=== PATIENT | male | born 1980 | race American Indian/Alaskan Native ===

== ENCOUNTER 2021-10-15 22:50 | Emergency (ER) | payer SELFPAY ==
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
[2021-10-16 05:22] VITALS: BP 132/68
== END 2021-10-16 08:12 | disposition home or self-care (01) ==
LOC: ED 22:50
DX: S20.212A Contusion of left front wall of thorax, initial encounter (principal); Y08.89XA Assault by other specified means, initial encounter; Y93.89 Activity, other specified; Y92.89 Other specified places as the place of occurrence of the external cause; Y99.8 Other external cause status; Z90.89 Acquired absence of other organs
CPT/HCPCS: 99283